=== PATIENT | female | born 1945 | race Two or more races ===

== ENCOUNTER 2017-07-31 09:46 | Emergency (ER) | payer MEDICARE, BC ==
[~2017-07-31] VITALS: Ht 154.9 cm; Wt 93.5 kg
[~2017-07-31 09:46] MED LIST: HYZA50TA2 PO; LEVO.125 PO; RAMI10CA35 PO; ZOCO40TA PO
[2017-07-31 09:58] VITALS: BP 167/77; PULSE 79; RESP 18; TEMP 97.6; O2SAT 98
[2017-07-31] MEDS ORDERED: LOSA50TA2 PO (10:49)
[2017-07-31] MEDS ORDERED: SIMV40TA PO (10:49)
[2017-07-31] MEDS ORDERED: LEVO125T4 PO (10:49)
--- NOTE | 2017-07-31 11:40 | PD ---
HPI Chief Complaint: Musculoskeletal Complaint Time Seen by Provider: 11:28 Travel History International Travel<30 days: No Contact w/Intl Traveler<30days: No Traveled to known affect area: No History of Present Illness HPI 72-year-old female complains of right heel pain. Patient states that the pain started yesterday. Patient states the pain is sharp burning pain localized to the posterior aspect of the right heel. Patient denies any pain radiation. Patient states that the pain is worse with weightbearing. Patient denies any injury. PFSH Past Medical History High Cholesterol: Yes Diabetes: No Diminished Hearing: No Hypertension: Yes Immunizations Current: No Thyroid Disease: Yes Tetanus Vaccination: Unknown ?: Not Past Surgical History Hysterectomy: Yes Social History Alcohol Use: No Tobacco Use: No Substance Use: No Allergies-Medications (Allergen,Severity, Reaction): Coded Allergies: No Known Allergies (Unverified , 07/31/17) Reported Meds & Prescriptions Reported Meds & Active Scripts Active Reported Simvastatin 40 Mg Tab 40 Mg PO HS Losartan-Hydrochlorothiazide 50-12.5 Mg Tab 1 Tab PO DAILY Levothyroxine (Levothyroxine Sodium) 125 Mcg Tab 125 Mcg PO DAILY Review of Systems General / Constitutional: No: Fever Eyes: No: Visual changes HENT: No: Headaches Cardiovascular: No: Chest Pain or Discomfort Respiratory: No: Shortness of Breath Gastrointestinal: No: Abdominal Pain Genitourinary: No: Dysuria Musculoskeletal: No: Pain Skin: No Rash Neurologic: No: Weakness Psychiatric: No: Depression Endocrine: No: Polydipsia Hematologic/Lymphatic: No: Easy Bruising Physical Exam Narrative GENERAL: Well-nourished, well-developed patient. SKIN: Focused skin assessment warm/dry. HEAD: Normocephalic. EYES: No scleral icterus. No injection or drainage. NECK: Supple, trachea midline. No JVD or lymphadenopathy. CARDIOVASCULAR: Regular rate and rhythm without murmurs, gallops, or rubs. RESPIRATORY: Breath sounds equal bilaterally. No accessory muscle use. GASTROINTESTINAL: Abdomen soft, non-tender, nondistended. MUSCULOSKELETAL: No cyanosis, or edema. BACK: Nontender without obvious deformity. No CVA tenderness. Patient has moderate tenderness on palpation posterior aspect the right heel area at the site of the Achilles tendon insertion. No redness swelling or deformity noted. Data Data Last Documented VS Vital Signs Date Time Temp Pulse Resp B/P (MAP) Pulse Ox O2 Delivery O2 Flow Rate FiO2 07/31/17 09:58 97.6 79 18 167/77 (107) 98 Orders Orders Foot, Heel Only ([id number]) (07/31/17 11:32) MDM Medical Decision Making Medical Screen Exam Complete: Yes Emergency Medical Condition: Yes Interpretation(s) Last Impressions Foot X-Ray 07/31/17 1132 Signed Impressions: Service Date/Time: Monday, July 31, 2017 11:49 - CONCLUSION: Small spur off the inferior calcaneus. Pasha Kay MD Differential Diagnosis Differential diagnosis including tendinitis, Avulsion fracture, tendon injury. Narrative Course 72-year-old female tenderness posterior aspect the right heel at the Achilles tendon insertion site. Diagnosis Primary Impression: Achilles tendinitis Qualified Codes: M76.61 - Achilles tendinitis, right leg Patient Instructions: General Instructions Additional Instructions: Anthony wrap right ankle. Take medication as needed for pain. Follow-up with orthopedist. Med/Other Pt SpecificInfo: Prescription(s) given Scripts Meloxicam (Mobic) 15 Mg Tab 15 MG PO DAILY for Pain, #20 TAB 0 Refills Prov: Florentino Pope MD 07/31/17 Disposition: 01 DISCHARGE HOME Condition: Stable Florentino Pope MD Jul 31, 2017 11:40
--- NOTE | 2017-07-31 12:09 | RADRPT ---
EXAM DATE/TIME: 07/31/2017 11:49 [facility] COMPARISON: No previous studies available for comparison. INDICATIONS : Right heel pain with no known injury, worse with weight bearing. MEDICAL HISTORY : Hypercholesterolemia. Hypertension Thyroid disease. SURGICAL HISTORY : Hysterectomy. ENCOUNTER: Initial ACUITY: 2 days PAIN SCORE: 7/10 LOCATION: Right heel FINDINGS: Two view examination of the right heel demonstrates the trabecula to be intact with no evidence of fr acture. There is a normal calcaneal angle. The soft tissues are of normal thickness. There is a sma ll spur off the inferior calcaneus at the site of attachment of the plantar aponuerosis. CONCLUSION: Small spur off the inferior calcaneus. Pasha Kay MD on July 31, 2017 at 12:06 Board Certified Radiologist. This report was verified electronically.
[2017-07-31] MEDS ORDERED: MOBI15TA PO (13:18)
== END 2017-07-31 13:40 | disposition home or self-care (01) ==
LOC: PHED 09:46
DX: M76.61 Achilles tendinitis, right leg (principal); I10 Essential (primary) hypertension
CPT/HCPCS: 73650; 99283